=== PATIENT | male | born 1955 | race Two or more races ===

== ENCOUNTER 2022-02-17 11:29 | Inpatient (IN) | payer MEDICAID ==
[~2022-02-17] VITALS: Ht 182.9 cm; Wt 104.7 kg
[2022-02-17] MEDS ORDERED: ATORVASTATIN 20 MG TAB PO ONE (12:15)
[2022-02-17] MEDS ORDERED: METOPROLOL TARTRATE 1MG/1ML-5ML VIAL IV ONE (12:15)
[2022-02-17] MEDS ORDERED: MORPHINE SULFATE 4 MG/ML SYR/VIAL IV PRN (12:15)
[2022-02-17 12:24] LABS: Basophils # (auto) 0.1 10 ^3/uL (0-0.2); Basophils % (auto) 0.5 % (0.0-2.0); Eosinophils # (auto) 0.2 10 ^3/uL (0-0.8); Eosinophils % (auto) 1.7 % (0.0-7.0); Hematocrit 47.9 % (41.0-53.0); Hemoglobin 16.4 g/dL (13.5-17.5); Lymphocytes # (auto) 2.2 10 ^3/uL (0.4-5.4); Lymphocytes % (auto) 17.3 % (10.0-50.0); Mean Corpuscular Hemoglobin 31.7 pg (28.0-32.0); Mean Corpuscular Hgb Conc. 34.2 g/dL (32.0-36.0); Mean Corpuscular Volume 92.8 fL (80.0-100.0); Monocytes % (auto) 7.8 % (0.0-12.0); Neutrophils # (auto) 9.2 10 ^3/uL (1.6-8.6); Neutrophils % (auto) 72.7 % (37.0-80.0); Red Blood Cells 5.16 10^6/uL (4.5-5.90); Red Cell Distribution Width 13.3 % (11.8-14.3); White Blood Cell 12.6 10^3/uL (4.4-10.8)
[2022-02-17] MEDS: SODIUM CHLORIDE 0.9% 1,000 ML IV SCH (12:26)
[2022-02-17 12:41] LABS: Albumin 3.9 g/dL (3.4-5.0); Calcium 9.1 mg/dL (8.5-10.1); Potassium 4.1 mmol/L (3.5-5.1)
[2022-02-17 12:45] LABS: BUN/Creatinine Ratio 15.4; Bilirubin, Total 0.5 mg/dL (0.2-1.0); Total Protein 7.6 g/dL (6.4-8.2)
[2022-02-17 12:50] LABS: Magnesium 2.2 mg/dL (1.6-2.6)
[2022-02-17 12:56] LABS: INR 1.02 (0.9-1.15); Partial Thromboplastin Time 30.9 sec (24.6-33.4)
[2022-02-17] MEDS: SODIUM CHLOR 0.9% PF (SALINE LOCK) 10ML VIAL/SYR IV SCH ×2 (14:00→22:19)
[2022-02-17 16:52] LABS: Urine Bacteria NONE SEEN /hpf (None Seen); Urine Blood Negative /uL (Negative); Urine Specific Gravity 1.006 (1.001-1.035); Urine WBC 1 /hpf (0 - 3)
[2022-02-17] MEDS ORDERED: NITROGLYCERIN 0.4 MG SL TAB SL PRN (18:30)
[2022-02-17] MEDS ORDERED: MORPHINE SULFATE INJ 2 MG/ml SYRG IV PRN (18:30)
[2022-02-17] MEDS ORDERED: hydrALAZINE HCL 20 MG/ML VL IV PRN (19:15)
[2022-02-17 19:52] LABS: Cholesterol 104 mg/dL (< 200)
[2022-02-17 19:55] LABS: HDL Cholesterol 53 mg/dL (40-59); LDL Cholesterol 51 mg/dL (< 100); Triglycerides 109 mg/dL (< 150)
[2022-02-17] MEDS ORDERED: METO25TA5 PO (21:21)
[2022-02-17] MEDS ORDERED: APIX5TAB PO (21:21)
[2022-02-17] MEDS ORDERED: PREG100C PO (21:21)
[2022-02-17] MEDS ORDERED: OMEP-434 PO (21:21)
[2022-02-17] MEDS ORDERED: ATO40T PO (21:21)
[2022-02-17] MEDS ORDERED: TAM04C PO (21:21)
[2022-02-17] MEDS ORDERED: LOSA-69 PO (21:21)
[2022-02-17 22:00] VITALS: BP 138/78
[2022-02-17] MEDS ORDERED: ATORVASTATIN 20 MG TAB PO SCH (22:00)
[2022-02-17] MEDS ORDERED: APIXABAN 5 MG TAB PO SCH (22:00)
[2022-02-17] MEDS ORDERED: METOPROLOL TARTRATE 25 MG TAB PO SCH (22:00)
[2022-02-17] MEDS ORDERED: PREGABALIN 25 MG CAP PO ONE (23:00)
[2022-02-18] MEDS: SODIUM CHLORIDE 0.9% 1,000 ML IV SCH (01:35)
[2022-02-18 05:22] LABS: Basophils # (auto) 0.1 10 ^3/uL (0-0.2); Basophils % (auto) 0.7 % (0.0-2.0); Eosinophils # (auto) 0.6 10 ^3/uL (0-0.8); Eosinophils % (auto) 4.5 % (0.0-7.0); Hematocrit 49.9 % (41.0-53.0); Hemoglobin 16.6 g/dL (13.5-17.5); Lymphocytes # (auto) 2.8 10 ^3/uL (0.4-5.4); Lymphocytes % (auto) 22.8 % (10.0-50.0); Mean Corpuscular Hemoglobin 31.3 pg (28.0-32.0); Mean Corpuscular Hgb Conc. 33.2 g/dL (32.0-36.0); Mean Corpuscular Volume 94.2 fL (80.0-100.0); Monocytes # (auto) 1.1 10 ^3/uL (0-1.3); Neutrophils # (auto) 7.8 10 ^3/uL (1.6-8.6); Red Blood Cells 5.29 10^6/uL (4.5-5.90); Red Cell Distribution Width 13.5 % (11.8-14.3); White Blood Cell 12.3 10^3/uL (4.4-10.8)
[2022-02-18 05:38] LABS: Potassium 3.8 mmol/L (3.5-5.1)
[2022-02-18 05:43] LABS: Albumin 3.7 g/dL (3.4-5.0); BUN/Creatinine Ratio 19.1
[2022-02-18 05:45] LABS: Bilirubin, Total 0.4 mg/dL (0.2-1.0); Total Protein 7.1 g/dL (6.4-8.2)
[2022-02-18 05:51] VITALS: BP 116/71
[2022-02-18] MEDS: SODIUM CHLOR 0.9% PF (SALINE LOCK) 10ML VIAL/SYR IV SCH (06:08)
[2022-02-18 09:00] VITALS: BP 116/80
[2022-02-18] MEDS ORDERED: NICOTINE 7MG/24HR TOPICAL PATCH TD SCH (10:00)
[2022-02-18] MEDS ORDERED: ASPirin 325 MG TAB PO SCH (10:00)
[2022-02-18] MEDS ORDERED: LOSARTAN POTASSIUM 50 MG TAB PO SCH (10:00)
[2022-02-18] MEDS ORDERED: ASPirin 81 mg TAB PO SCH (10:00)
== END 2022-02-18 09:16 | disposition left against medical advice (07) | DRG 201 ==
LOC: ER 11:29 → TELE 18:56 → TELE-WESTW 22:09
PROVIDERS: ADMIT Registered Nurse; ATTEND Registered Nurse
DX: I48.91 Unspecified atrial fibrillation (principal); E66.01 Morbid (severe) obesity due to excess calories; E78.5 Hyperlipidemia, unspecified; Z53.29 Procedure and treatment not carried out because of patient's decision for other reasons; I10 Essential (primary) hypertension; R00.0 Tachycardia, unspecified; I25.2 Old myocardial infarction; Z71.6 Tobacco abuse counseling; Z72.0 Tobacco use; Z68.31 Body mass index [BMI] 31.0-31.9, adult; Z86.711 Personal history of pulmonary embolism
CPT/HCPCS: 36415; 71045; 80053; 80061; 81001; 83036; 83690; 83735; 83880; 84443; 84484; 85025; 85379; 85610; 85730; 87426; 93005; 96361; 96374; G0378

== ENCOUNTER 2022-05-07 15:04 | Emergency (ER) | payer MEDICAID ==
[~2022-05-07] VITALS: Ht 180.3 cm; Wt 106.8 kg
[~2022-05-07 15:04] MED LIST: APIX5TAB PO; ATO40T PO; LOSA-69 PO; METO25TA5 PO; OMEP-434 PO; PREG100C PO; TAM04C PO
[2022-05-07 16:36] LABS: Basophils # (auto) 0.1 10 ^3/uL (0-0.2); Basophils % (auto) 0.7 % (0.0-2.0); Eosinophils # (auto) 0.1 10 ^3/uL (0-0.8); Eosinophils % (auto) 0.9 % (0.0-7.0); Hematocrit 45.6 % (41.0-53.0); Hemoglobin 15.5 g/dL (13.5-17.5); Lymphocytes # (auto) 1.6 10 ^3/uL (0.4-5.4); Lymphocytes % (auto) 16.1 % (10.0-50.0); Mean Corpuscular Hemoglobin 32.6 pg (28.0-32.0); Mean Corpuscular Volume 96.1 fL (80.0-100.0); Monocytes # (auto) 0.7 10 ^3/uL (0-1.3); Monocytes % (auto) 7.1 % (0.0-12.0); Neutrophils # (auto) 7.2 10 ^3/uL (1.6-8.6); Neutrophils % (auto) 75.2 % (37.0-80.0); Red Blood Cells 4.74 10^6/uL (4.5-5.90); Red Cell Distribution Width 13.4 % (11.8-14.3); White Blood Cell 9.6 10^3/uL (4.4-10.8)
[2022-05-07 16:57] LABS: Albumin 3.7 g/dL (3.4-5.0); Calcium 9.1 mg/dL (8.5-10.1); Magnesium 2.6 mg/dL (1.6-2.6); Potassium 3.5 mmol/L (3.5-5.1)
[2022-05-07 16:57] LABS: Urine Bacteria FEW /hpf (None Seen); Urine Blood Negative /uL (Negative); Urine Specific Gravity 1.004 (1.001-1.035); Urine WBC 5 /hpf (0 - 3)
[2022-05-07 17:14] LABS: BUN/Creatinine Ratio 16.2; Bilirubin, Total 0.7 mg/dL (0.2-1.0); Total Protein 6.9 g/dL (6.4-8.2)
[2022-05-07] MEDS ORDERED: IOHEXOL 350 MG/ML 100ML IJ ONE (21:28)
[2022-05-07] MEDS ORDERED: CEPH500C PO ×2 (22:24→22:25)
[2022-05-07] MEDS ORDERED: CEPH-322 PO (22:24)
[2022-05-07 23:55] VITALS: BP 142/78
== END 2022-05-08 01:01 | disposition home or self-care (01) ==
LOC: ER 15:04
DX: R39.89 Other symptoms and signs involving the genitourinary system (principal); F17.210 Nicotine dependence, cigarettes, uncomplicated
CPT/HCPCS: 36415; 71045; 71275; 73610; 80053; 81001; 83605; 83735; 84484; 85025; 85379; 93005; 99285; Q9967